=== PATIENT | male | born 1950 | race Caucasian/White ===

== ENCOUNTER 2021-10-15 10:46 | Day surgery (SDC) | payer MEDICARE, BC, SELFPAY ==
[2021-10-15] VITALS (22 sets, daily range): BP systolic 100–161; BP diastolic 43–80; PULSE 65–86; RESP 14–18; TEMP 36.2–36.7; O2SAT 91–96; BMI 29.3
[2021-10-15] MEDS: ACETAMINOPHEN 500 MG TABLET 1000 MG PO ×2 (11:12→19:33)
[2021-10-15] MEDS: CELECOXIB 200 MG CAPSULE PO (11:12)
[2021-10-15] MEDS: OXYCODONE (CR) 10 MG TAB.ER.12H PO (11:12)
[2021-10-15] MEDS: LACTATED RINGERS 1000 ML 1,000 ML 100 ML IV (11:27)
[2021-10-15] MEDS: SODIUM CHLORIDE 0.9 % (FLUSH) 10 ML SYRINGE IVF (11:27)
--- NOTE | 2021-10-15 13:06 | SUR.PREOP ---
TIME?OUT:?1305 PT/RN/ALVARO novoa?VERIFICATION?OF?SURGICAL?SITE right shoulder,?PROCEDURE right shoulder nerve block,?AND?CONSENT OBTAINED?PRIOR?TO?INVASIVE?PROCEDURE.
[2021-10-15] MEDS: fentaNYL 100 MCG/2 ML inj IVP (13:11)
[2021-10-15] MEDS: MIDAZOLAM HCL 1 MG/ML inj IVP (13:11)
--- NOTE | 2021-10-15 13:13 | P.NB_ITS ---
Nerve Block Nerve Block Time Seen by Provider: 13:12 Date Seen: 10/15/21 Type of block requested by surgeon for post-operative analgesia: interscalene Side: right Time out performed: Yes Verification of patient name: Yes Verification of date of : Yes Site marking: site marked Name of person performing procedure: Ja Assistants, if any: Arlenembrogkike Continuous monitoring Was continuous monitoring of O2 sat, B/P, diagnostic technician, recorded every 15 minutes?: Yes Procedure Checklist: sterile prep, needles and gloves Ultrasound guided. Images saved: Yes Medications given in 5ml increments after negative aspiration: Ropivicaine %: 0.5 mL: 20 Needle gauge: 22 Decadron (mg): 10 Precedex (mcg): 25 Patient tolerated procedure well: Yes
[2021-10-15] MEDS: CEFAZOLIN 2 GM INJ IVP (13:30)
--- NOTE | 2021-10-15 14:26 | PC.NURSE ---
3000cc NACL USED TO IRRIGATE THE RIGHT SHOULDER PRIOR TO BEGINNING THE CLOSURE.
--- NOTE | 2021-10-15 16:25 | P.ORPRC_ITS ---
Procedure Note Procedure: SURGEON: Gui Astudillo MD BRAKE OPERATOR SHEET METAL: Krupa Hidalgo PA-C, OBED Jo PREOPERATIVE DIAGNOSIS: Right upper extremity end-stage glenohumeral joint osteoarthritis POSTOPERATIVE DIAGNOSIS: Right upper extremity end-stage glenohumeral joint osteoarthritis NAME OF OPERATION: Right upper extremity total shoulder arthroplasty ANESTHESIA: General endotracheal ESTIMATED BLOOD LOSS: 300 mL COMPLICATIONS: None SPECIMENS: None DRAINS: None PREOPERATIVE ANTIBIOTICS: Ancef 2 grams IMPLANTS: 1. Tornier medium 25 degree augmented pegged glenoid component 2. Tornier 5B humeral stem 3. 48 mm x 20 mm low offset humeral head INDICATIONS: The patient is a 71-year-old male with a longstanding history of severe, unrelenting right shoulder pain secondary to end-stage glenohumeral joint osteoarthritis. Despite appropriate nonoperative management, including activity modification, anti-inflammatories, [id number] pain medication, physical therapy, and injections they continue to have pain and disability. Operative intervention was offered. The risks, benefits and expected outcomes were discussed in detail. These included but were not limited to: Infection, bleeding, injury to blood vessel or nerve, venous thromboembolism. All questions were answered to their satisfaction. Use of an resident assistant was necessary throughout the case for patient positioning and safety, soft tissue retraction, and closure. A modifier 22 should be added to this case. Exposure of the glenoid was quite difficult. Also given the amount of retroversion on the glenoid this added to the exposure difficulty and complexity of the case. These factors more than doubled the time typically required to complete the case. PROCEDURE: General anesthesia was administered. The patient was placed in the lazy beach chair position on the operating room table. The right upper extremity was prepped and draped in the usual sterile fashion. A standard deltopectoral incision was made. Subcutaneous dissection was taken with electrocautery to the deltopectoral interval. The cephalic vein was mobilized, lateral branches were cauterized. It was retracted medially, with the pectoralis. We bluntly entered the deltopectoral interval. We freed up the deltoid. The upper 1/3 of the insertion of the pectoralis was divided with cautery. The static retractor was placed. The clavipectoral fascia and CA ligament were divided. The circumflex vessels were controlled with electrocautery. The biceps was dissected out of the bicipital groove, was tagged with a #2 FiberWire suture and divided proximally. Two fiberWire sutures were placed in the subscapularis. The subscap was subperiosteally elevated off of the lesser tuberosity. The humeral head was delivered into the wound. The intramedullary humeral cutting guide was placed. We made the cut at the anatomic neck, in 20? of retroversion. Humeral sounds were used. Broaches were used until rotational stability was achieved. The cut protector was placed. Attention was then turned to the glenoid. Hohmann retractors were placed posteriorly. The labrum and biceps stump were sharply debrided. The origin of the inferior glenohumeral ligaments were subperiosteally released off of the glenoid. Based on our preoperative plan, the glenoid appeared to be a medium. This was confirmed. The blueprint drill guide was placed. The guide pin was placed. The reamer was used to lower the anterior side. The derotation drill guide was placed and the derotation hole was drilled anteriorly. The angled Reamer was used at 15?, then 25?. This nicely made the glenoid concentric. The medium 25 degree Sizer was placed. The peripheral drill guide was placed. The peripheral drill holes were made. The guide was removed and the central drill hole was made, over the guide pin. The guide pin was removed and the trial glenoid component was placed and was an excellent fit. The glenoid was irrigated with normal saline then thoroughly dried. Cement was placed in the superior and inferior drill holes. The medium 25 degree augment, pegged glenoid component was placed and was impacted. This was an excellent fit. Attention then returned to the humerus. The trial humeral head was placed. We reduced the shoulder and took it through a range of motion. It was found to be stable with appropriate soft tissue tension. Trial humeral components were removed. We placed 2 #2 FiberWire sutures through the lesser tuberosity for subsequent subscap repair. The biceps was tenodesed in the groove with sutures placed through drill holes, into the canal. We assembled the humeral component on the back table and impacted it into the canal. This had excellent purchase. The shoulder was reduced and was found to have appropriate soft tissue tension. We did a 3 min dilute Betadine solution soak. We irrigated the wound with 3 L of normal saline via pulse lavage. We repaired the subscapularis to the lesser tuberosity with our previously placed FiberWire sutures. The rotator interval was repaired with a #2 FiberWire suture. The deltopectoral interval was loosely reapproximated with an 0 Vicryl in an interrupted [id number] fashion. Subcutaneous tissues were closed with the 2-0 Vicryl and a running 3-0 Monocryl suture. The skin was sealed with glue. A dry dressing and sling were applied Sponge and needle counts were correct x2. The patient tolerated the procedure well, there were no apparent complications. They were awakened and extubated in the operating room, taken to the postanesthesia care unit in satisfactory condition. PLAN: The patient will be mobilized with physical therapy. The sling will be used for 6 weeks postoperatively. Active range of motion in forward flexion and abduction as tolerates. No external rotation greater than 0? for 6 weeks postoperatively. They will to be discharged to home once medically appropriate.
--- NOTE | 2021-10-15 16:58 | W.ANESCHARGE ---
Anesthesia Charges Start Date/Time Anesthesia Start Date: 10/15/21 Anesthesia Start Time: 13:18 Stop Date/Time Anesthesia Stop Date: 10/15/21 Anesthesia Stop Time: 16:53 Summary Emergency: No Extremes of Age: Over 70-CPT 89150
--- NOTE | 2021-10-15 17:10 | CRLHL7_ITS ---
For Patients: As a result of the Century Cures Act, medical imaging exams and procedure reports are released immediately into your electronic medical record. You may view this report before your referring provider. If you have questions, please contact your health care provider. 2 view portable right shoulder. INDICATION: Right shoulder arthroplasty IMPRESSION: The components are intact humeral prosthesis with postoperative changes at the glenoid. Alignments anatomic. No acute osseous lesion. Postoperative changes small amount of gas in the soft tissues. Dictated by Rosales Nunez MD @ 10/18/2021 10:02:33 PM (Electronically Signed)
[2021-10-15] MEDS: LACTATED RINGERS 1000 ML 1,000 ML 75 ML IV (18:00)
[2021-10-15] MEDS: HYDROmorphone 0.5 mg/0.5 ml inj IVP ×3 (19:00→23:10)
[2021-10-15] MEDS: CEFAZOLIN 2 GM in 0.9 % SODIUM CHLORIDE Mini-bag 100 ML IVPB (19:32)
--- NOTE | 2021-10-15 19:45 | PC.NURSE ---
Pt. arrived to room 257 from PACU just after 1800. Awake, alert, denied pain, nausea or other issue. Able to wiggle fingers, some numbness noted in right hand. Cryocuff to right shoulder, dressings x2 to anterior shoulder C/D/I. TEDS/SCDs in place. Fiance at bedside. Frequent vitals thus far unremarkable. Tolerating ice chips/drinks.
--- NOTE | 2021-10-15 20:06 | P.IMCN_ITS ---
Date of Consult Primary Care Provider: Felipe Flores MD Consult Narrative Narrative: HOSPITALIST CONSULT Hospital Day # 1 Postop day 0 right total shoulder arthroplasty The hospital medicine team was asked by Orthopedic team to manage the patient's hypertension Preop completed on 10/[address] Shell is reviewed in detail. PAST MEDICAL HISTORY: Hypertension Erectile dysfunction Hyperlipidemia Acoustic neuroma, left-sided hearing loss History of prostate cancer MEDICATIONS: Reviewed ALLERGIES: No known drug allergies SURGICAL HISTORY: Status post prostatectomy, robotic History of lung biopsy Status post excision acoustic neuroma FAMILY HISTORY: Reviewed in EMR HABITS: Previous smoker SOCIAL HISTORY: See H&P REVIEW OF SYSTEMS: 12-point ROS completed with patient and negative unless otherwise stated in HPI or below. PHYSICAL EXAM: CODE STATUS: CONSTITUTIONAL: Conversive, good historian. A/O. Knows setting and context. VITAL SIGNS: see record. HEENT: Normocephalic, atraumatic. PERRL, EOMI, conjunctivae pink, no scleral icterus. Ears and nose externally normal. Pharynx normal. NECK: No JVD. No carotid bruit, no thyromegaly, no adenopathy. CHEST: Clear to auscultation bilaterally HEART: No harsh murmurs. S1/S2. ABDOMEN: Flat, soft, nontender. Normal bowel sounds. Moderately obese. EXTREMITIES: No edema. MUSCULOSKELETAL: Right shoulder is clean dry and intact with surgical dressing overlying. NEURO: Cranial nerves intact. Normal affect. No gross deficits. Speech intelligible. SKIN: No rashes, petechiae, concerning changes PSYCHIATRIC: Euthymic. INVESTIGATIONS: EMR Reviewed DISPOSITION: DVT: Ambulation GI: PO intake [facility] Medical History (Updated 10/14/21 @ 09:41 by Jina Pro RN) Acoustic neuroma Allergic rhinitis Gastroesophageal reflux disease History of malignant neoplasm of prostate Hyperlipidemia Hypertension Lung nodule (2008) Polyp of colon (2010) Surgical History (Updated 10/15/21 @ 20:36 by Mireya Harkins MD) History of lung biopsy (2008) Status post excision of acoustic neuroma Status post prostatectomy (2011) Status post reverse total arthroplasty of right shoulder Social History Smoking Status: Never smoker How often do you have a drink containing alcohol: 2-3 times a week How many standard drinks containing alcohol do you have on a typical day: 3 or 4 How often do you have six or more drinks on one occasion: Less than monthly AUDIT-C Alcohol total score: 5 Non-prescribed substance use: denies use Caffeine: Yes service: No Meds Home Medications and Allergies Home Medications Medication Instructions Recorded Confirmed Type aspirin 81 mg tablet,delayed 81 mg PO DAILY 10/08/21 10/15/21 History release atorvastatin 10 mg tablet 10 mg PO HS 10/08/21 10/15/21 History ibuprofen 200 mg tablet 400 mg PO Q6H PRN 10/08/21 10/08/21 History lisinopril 10 1 tab PO DAILY 10/08/21 10/15/21 History mg-hydrochlorothiazide 12.5 mg tablet tadalafil 5 mg tablet 5 mg PO PRN PRN 10/08/21 10/15/21 History Allergies Allergy/AdvReac Type Severity Reaction Status Date / Time No Known Allergies Allergy Unverified 10/04/21 16:14 Exam Const: Vital Signs, click to edit/add: Vital Signs - 24 hr 10/15/21 11:16 10/15/21 13:10 10/15/21 16:49 Temperature 97.6 F 97.2 F L Pulse Rate 70 65 70 Pulse Rate [Right Pulse Oximeter] Respiratory Rate 16 14 16 Blood Pressure 129/80 121/78 117/64 Blood Pressure [Le ft Arm] Pulse Oximetry 96 93 91 10/15/21 17:00 10/15/21 17:01 10/15/21 17:05 Temperature Pulse Rate 69 71 75 Pulse Rate [Right Pulse Oximeter] Respiratory Rate 16 16 16 Blood Pressure 107/64 105/60 100/61 Blood Pressure [Le ft Arm] Pulse Oximetry 96 96 94 10/15/21 17:11 10/15/21 17:15 10/15/21 17:21 Temperature Pulse Rate 73 73 75 Pulse Rate [Right Pulse Oximeter] Respiratory Rate 16 14 14 Blood Pressure 102/61 106/58 L 100/64 Blood Pressure [Le ft Arm] Pulse Oximetry 94 95 93 10/15/21 17:25 10/15/21 17:30 10/15/21 18:12 Temperature 98.1 F Pulse Rate 77 78 Pulse Rate [Right Pulse Oximeter] 79 Respiratory Rate 16 16 14 Blood Pressure 105/66 108/66 Blood Pressure [Le ft Arm] 119/71 Pulse Oximetry 93 92 94 10/15/21 18:17 10/15/21 18:30 10/15/21 18:45 Temperature 97.7 F Pulse Rate 79 Pulse Rate [Right Pulse Oximeter] 79 78 73 Respiratory Rate 14 14 Blood Pressure Blood Pressure [Le ft Arm] 104/69 110/69 112/74 Pulse Oximetry 95 95 96 10/15/21 19:00 10/15/21 19:33 Temperature 97.7 F 97.7 F Pulse Rate Pulse Rate [Right Pulse Oximeter] 73 Respiratory Rate 14 Blood Pressure Blood Pressure [Le ft Arm] 123/72 Pulse Oximetry 96 Assessment and Plan Assessment and plan (1) Status post reverse total arthroplasty of right shoulder: Status: Acute Assessment and Plan: I expect a benign postoperative course. Hospital medicine team is happy to varsha wong along. His hypertension appears well managed. There are no other acute problems that should affect his overnight stay. VT prophylaxis is simple ambulation. (2) Hypertension: Status: Acute Assessment and Plan: We will continue his lisinopril/hydrochlorothiazide in the morning. Blood pressure today looks good 112/75.
[2021-10-15] MEDS: SENNOSIDES 1 TAB TABLET 2 TAB PO (21:43)
[2021-10-15] MEDS: ATORVASTATIN 10 MG TABLET PO (21:44)
[2021-10-16] MEDS: HYDROmorphone 0.5 mg/0.5 ml inj IVP ×5 (01:15→06:35)
[2021-10-16 03:00] VITALS: BP 109/61; PULSE 90; RESP 18; TEMP 36.8; O2SAT 93
[2021-10-16] MEDS: CEFAZOLIN 2 GM in 0.9 % SODIUM CHLORIDE Mini-bag 100 ML IVPB ×2 (03:21→11:26)
--- NOTE | 2021-10-16 05:34 | PC.NURSE ---
Shift note: Surgical dressing is C/D/I, pt still does not feel any pain to his sx site, sensation in fingers present mostly tingling, extremity is warm, radial pulse strong. Pt tolerates PO food and fluids with no c/o nausea, is voiding, ambulates independently in the room.
[2021-10-16] MEDS: lisinopriL 10 MG TABLET PO (09:16)
[2021-10-16] MEDS: ACETAMINOPHEN 500 MG TABLET 1000 MG PO (09:16)
[2021-10-16] MEDS: SENNOSIDES 1 TAB TABLET 2 TAB PO (09:16)
[2021-10-16] MEDS: hydroCHLOROthiazide 12.5 MG CAPSULE PO (09:16)
--- NOTE | 2021-10-16 09:16 | P.DS_ITS ---
DS: Providers Provider Time Seen by Provider: 09:15 Date Seen: 10/16/21 Primary care physician: Felipe Flores MD Consults: 10/15/21 16:21 Consult to Occupational Therapy [CONS] Routine Comment: Reason(s) for OT Consult:: Evaluate and Treat Any Restrictions?:: See Comment Consult to Physical Therapy [CONS] Routine Comment: Reason(s) for PT Consult:: Evaluate Ambulation Any Restrictions?:: See Comment Comment: No ER > 0 degrees Consult to Self Pay Specialist [CONS] Routine Comment: Reason for Consult:: Discharge Planning Needs Attending Physician on discharge: Gui Astudillo MD DS: Diagnosis Discharge Diagnosis (1) Status post reverse total arthroplasty of right shoulder: Status: Acute DS: Summary Hospital Course Hospital Course: 71-year-old male underwent right total shoulder arthroplasty yesterday, the day of admission. There were no operative complications. Patient is doing well today. His block is still effective. He has had no other concerns. Time Spent with Patient Time attestation: Total time spent providing and/or coordinating discharge services: Time spent: Less than 30 minutes Exam Narrative: Exam Narrative: He is alert and appears in no distress. Breathing is unlabored. He has diminished motion and sensation in his right hand. Good peripheral pulses and good capillary refill. Const: Vital Signs, click to edit/add: Vital Signs - 24 hr 10/15/21 11:16 10/15/21 13:10 10/15/21 16:49 Temperature 97.6 F 97.2 F L Pulse Rate 70 65 70 Pulse Rate [Right Pulse Oximeter] Respiratory Rate 16 14 16 Blood Pressure 129/80 121/78 117/64 Blood Pressure [Le ft Arm] Pulse Oximetry 96 93 91 10/15/21 17:00 10/15/21 17:01 10/15/21 17:05 Temperature Pulse Rate 69 71 75 Pulse Rate [Right Pulse Oximeter] Respiratory Rate 16 16 16 Blood Pressure 107/64 105/60 100/61 Blood Pressure [Le ft Arm] Pulse Oximetry 96 96 94 10/15/21 17:11 10/15/21 17:15 10/15/21 17:21 Temperature Pulse Rate 73 73 75 Pulse Rate [Right Pulse Oximeter] Respiratory Rate 16 14 14 Blood Pressure 102/61 106/58 L 100/64 Blood Pressure [Le ft Arm] Pulse Oximetry 94 95 93 10/15/21 17:25 10/15/21 17:30 10/15/21 18:12 Temperature 98.1 F Pulse Rate 77 78 Pulse Rate [Right Pulse Oximeter] 79 Respiratory Rate 16 16 14 Blood Pressure 105/66 108/66 Blood Pressure [Le ft Arm] 119/71 Pulse Oximetry 93 92 94 10/15/21 18:17 10/15/21 18:30 10/15/21 18:45 Temperature 97.7 F Pulse Rate 79 Pulse Rate [Right Pulse Oximeter] 79 78 73 Respiratory Rate 14 14 Blood Pressure Blood Pressure [Le ft Arm] 104/69 110/69 112/74 Pulse Oximetry 95 95 96 10/15/21 19:00 10/15/21 19:30 10/15/21 19:33 Temperature 97.7 F 97.7 F 97.7 F Pulse Rate Pulse Rate [Right Pulse Oximeter] 73 83 Respiratory Rate 14 18 Blood Pressure Blood Pressure [Le ft Arm] 123/72 104/70 Pulse Oximetry 96 93 10/15/21 20:00 10/15/21 21:00 10/15/21 22:00 Temperature 97.7 F 97.7 F 98 F Pulse Rate Pulse Rate [Right Pulse Oximeter] 84 80 Respiratory Rate 16 16 18 Blood Pressure Blood Pressure [Le ft Arm] 112/75 121/76 161/43 H Pulse Oximetry 94 95 94 10/15/21 23:00 10/16/21 03:00 Temperature 98 F 98.2 F Pulse Rate Pulse Rate [Right Pulse Oximeter] 86 90 Respiratory Rate 18 Blood Pressure Blood Pressure [Le ft Arm] 125/69 109/61 Pulse Oximetry 93 Documenting provider has reviewed patient's vital signs: yes Discharge Plan Discharge Disposition: Home, Self-Care Discharging Surgeon: Gui Astudillo Follow-Up Appointment: Per orthopedic surgery Prescriptions: New sennosides [Senna Lax] 8.6 mg Tablet 2 tab PO BID PRNQty: 100 0RF acetaminophen 500 mg Tablet 500 - 1,000 mg PO Q6H PRN (Reason: prn) Qty: 100 0RF oxycodone 5 mg Tablet 2.5 - 5 mg PO Q4-6H PRN (Reason: Pain) Qty: 42 0RF Continued atorvastatin 10 mg tablet 10 mg PO HS 0RF lisinopril-hydrochlorothiazide 10-12.5 mg tablet 1 tab PO DAILY 0RF tadalafil 5 mg tablet 5 mg PO PRN PRN0RF Rx Instructions: TAKE ONE TAB 30 MIN TO 36 HRS PRIOR TO INTERCOURSE aspirin 81 mg tablet,delayed release (DR/EC) 81 mg PO DAILY 0RF ibuprofen 200 mg tablet 400 mg PO Q6H PRN0RF Activity Level: Wear Brace Activity Detail: Wear sling for 6 weeks. Active range of motion of right elbow, wrist, fingers daily. Forward flexion and abduction Right shoulder as tolerates. No external rotation of the shoulder greater than 0?. Ice right shoulder without restriction. Leave dressing on. Dressing is waterproof. May shower. Surgical glue covers the wound. Notify Orthopedics with any questions or concerns. Discharge Diet: Heart Healthy (2 gm sodium, low fat) Additional Instructions: Resume normal blood pressure medicines. Other medications resumed as well. Pain medicine management discussed. Also discussed laxatives for constipation as long as he is needing pain medications. Forms: [facility] Info Instructions Follow-up: Felipe Flores MD [Primary Care Provider] - Discharge Orders: Discharge Order (Routine); Ordered 10/16/21 Ordered By: Steve Holden
--- NOTE | 2021-10-16 09:33 | P.ORPN_ITS ---
Subjective Subjective Time Seen by Provider: 08:30 Date Seen: 10/16/21 Principal diagnosis: Status post right shoulder replacement Interval history: Pt is comfortable this morning. He did not sleep well. He has some wrist movement this morning, right. Ortho Exam Narrative Exam Narrative: Examination of the right shoulder shows the dressing is intact. Mild soft tissue edema about the right shoulder. Wrist flexion and extension is slight. He is also able to extend and flex his fingers but is not able to make a full composite fist. Decreased sensation right upper extremity. Right upper extremity is in a sling. Const Vital Signs, click to edit/add: Vital Signs - 24 hr 10/15/21 11:16 10/15/21 13:10 10/15/21 16:49 Temperature 97.6 F 97.2 F L Pulse Rate 70 65 70 Pulse Rate [Right Pulse Oximeter] Respiratory Rate 16 14 16 Blood Pressure 129/80 121/78 117/64 Blood Pressure [Left Arm] Pulse Oximetry 96 93 91 10/15/21 17:00 10/15/21 17:01 10/15/21 17:05 Temperature Pulse Rate 69 71 75 Pulse Rate [Right Pulse Oximeter] Respiratory Rate 16 16 16 Blood Pressure 107/64 105/60 100/61 Blood Pressure [Left Arm] Pulse Oximetry 96 96 94 10/15/21 17:11 10/15/21 17:15 10/15/21 17:21 Temperature Pulse Rate 73 73 75 Pulse Rate [Right Pulse Oximeter] Respiratory Rate 16 14 14 Blood Pressure 102/61 106/58 L 100/64 Blood Pressure [Left Arm] Pulse Oximetry 94 95 93 10/15/21 17:25 10/15/21 17:30 10/15/21 18:12 Temperature 98.1 F Pulse Rate 77 78 Pulse Rate [Right Pulse Oximeter] 79 Respiratory Rate 16 16 14 Blood Pressure 105/66 108/66 Blood Pressure [Left Arm] 119/71 Pulse Oximetry 93 92 94 10/15/21 18:17 10/15/21 18:30 10/15/21 18:45 Temperature 97.7 F Pulse Rate 79 Pulse Rate [Right Pulse Oximeter] 79 78 73 Respiratory Rate 14 14 Blood Pressure Blood Pressure [Left Arm] 104/69 110/69 112/74 Pulse Oximetry 95 95 96 10/15/21 19:00 10/15/21 19:30 10/15/21 19:33 Temperature 97.7 F 97.7 F 97.7 F Pulse Rate Pulse Rate [Right Pulse Oximeter] 73 83 Respiratory Rate 14 18 Blood Pressure Blood Pressure [Left Arm] 123/72 104/70 Pulse Oximetry 96 93 10/15/21 20:00 10/15/21 21:00 10/15/21 22:00 Temperature 97.7 F 97.7 F 98 F Pulse Rate Pulse Rate [Right Pulse Oximeter] 84 80 Respiratory Rate 16 16 18 Blood Pressure Blood Pressure [Left Arm] 112/75 121/76 161/43 H Pulse Oximetry 94 95 94 10/15/21 23:00 10/16/21 03:00 Temperature 98 F 98.2 F Pulse Rate Pulse Rate [Right Pulse Oximeter] 86 90 Respiratory Rate 18 Blood Pressure Blood Pressure [Left Arm] 125/69 109/61 Pulse Oximetry 93 Documenting provider has reviewed patient's vital signs: yes Common normals: no apparent distress, average body habitus, oriented x3, no limitations, healthy appearing, alert and well nourished General appearance: cooperative, comfortable, well kempt and well developed Orientation/consciousness: Yes awake HENMT Common normals: Yes hearing grossly normal bilaterally Resp Common normals: Yes normal respiratory effort, Yes no retractions and Yes no use of accessory muscles Cardio Peripheral pulses: radial pulses present and ulnar pulses present Extremity Common normals: no calf tenderness Neuro Common normals: oriented x3 Sensorium/orientation: awake and alert Psych Common normals: thought process normal and speech normal Appearance: well kempt Speech: normal speech Mood and affect: euthymic mood Thought process: normal thought process Thought content: normal thought content Attention/concentration: attention grossly intact Memory/cognition: memory grossly intact Insight: insight good Judgement: judgment good Skin Common normals: Yes no rashes or lesions noted and Yes skin turgor normal General skin exam: Yes no rashes or lesions noted, Yes turgor normal and Yes warmth appropriate Assessment and Plan Assessment and plan (1) Status post replacement of right shoulder joint: Problem details: Plan for discharge is today to home if they meet discharge criteria. Patient will wear the sling for 6 weeks post surgery. She can take it off for comfort and for exercises. Activity: no external rotation of the left shoulder past 0? x 6 weeks. Forward flexion and abduction of the left shoulder is allowed as tolerated. They will work on range of motion of the elbow, wrist, fingers once the block has wore off on the operative extremity. Patient will begin occupational therapy for the operative shoulder next week. For discharge, oxycodone and Tylenol for pain. The patient is tolerating these well. Do not drive while on narcotic pain medication. Drive only when safe to do so, when they have normal use/function of the upper extremity. Patient will minimize and discontinue the narcotic as soon as possible. Remove dressing in 1 week. Dressing is waterproof. May shower. Surgical glue covers the wound. Do not sc rub the wound. Expect swelling and bruising about the shoulder and upper extremity. Use of ice/active ice is without restriction. Patient will notify Orthopedics with any questions or concerns. Return to Orthopedic clinic next week for a wound check Return to clinic in [address] Astudillo. Status: Acute
[2021-10-16] MEDS: ASPIRIN 81 MG TABLET EC PO (10:43)
[2021-10-16] MEDS: OXYCODONE 5 MG TABLET PO (10:43)
[2021-10-16 11:31] VITALS: BP 120/65; PULSE 92; RESP 16; TEMP 37.3; O2SAT 94
--- NOTE | 2021-10-16 15:35 | PC.NURSE ---
Pt. up indep. in room/halls with therapy and on own this morning. Voiding adequately, pain controlled w/PRN med x1, tolerating regular diet. Worked w/OT & PT this morning. Vitally stable, 3rd dose Zocyn received and saline lock removed. D/C paperwork signed and returned to chart after discussing D/C information, answering questions and reviewing new medications. Pt. requested Kelsie, OT return to also help educate his significant other, which was accomplished. Pt. left w/belongings and significant other @ 1300.
== END 2021-10-16 13:00 | disposition home or self-care (01) ==
LOC: MEDSURG 17:43 → SS 19:11 → MEDSURG 19:12
PROVIDERS: PCP Internal Medicine; Visit Provider Orthopaedic Surgery
PROC: 0RRJ0JZ Replacement of Right Shoulder Joint with Synthetic Substitute, Open Approach (ICD-10-PCS; CPT 23472; principal; 2021-10-15 13:00)
DX: M19.011 Primary osteoarthritis, right shoulder (principal); I10 Essential (primary) hypertension; Z85.46 Personal history of malignant neoplasm of prostate; E78.5 Hyperlipidemia, unspecified; K21.9 Gastro-esophageal reflux disease without esophagitis
CPT/HCPCS: 23472; 1638; 64415; 73030; 76942; 97110; 97161; 97165; 97535; 99100; A9270; C1776; J0330; J0690; J1100; J1170; J2250; J2370; J2405; J2704; J2795; J3010; J7120; L3670

== ENCOUNTER 2022-01-11 08:15 | Outpatient (RCR) | payer MEDICARE, BC, SELFPAY ==
--- NOTE | 2021-10-28 13:54 | PT.OPE ---
PT [place] Outpatient Eval PT [facility] Outpatient Eval Start: 10/28/21 13:20 Freq: Status: Active Protocol: Document 10/28/21 13:21 CITLALY (Rec: 10/28/21 13:51 CITLALY Desktop) E-Signed By Roberto Peña, PT, ATC Physical Therapy Outpatient Evaluation Insurance Information Insurance Name Medicare B Medical Diagnosis s/p R shld TSA, 10/15/21 Treating Diagnosis R shld pain R shld stiffness R lower arm swelling and parethesia Referring MD Astudillo Subjective Subjective Pain at rest: 0-1/10 Pain with movement: 8/10 Wearing splint throughout the day but not at night. Date of Last Physician Visit 10/25/21 Date of Surgery (If applicable) 10/15/21 Current Work Status Retired Precautions Treatment Precautions/Contraindications R UE DVT occurrence since surgery. Pain, lower arm swelling and paresthesia. Has been taking medication-Xarelto x 30 days. Therapy Limitations/Systems Review Not Limited Objective Range of Motion PROM L shld WNL's all patterns R FLEX 70 degrees, ABD 40 Strength Finished Goods Planner strength L 92#, R 8# Pinch strength L 18#, R 5# Swelling Circumference 2 prox distal radius: R 7 1/ 2 6 prox distal radius: R 10 1 /2 Palpation Tenderness over anterior R shld incision, into pectoralis and anterior chest. Posture Stands with elevated R shoulder, elbow flexed and arm held close to his body. Bruising present on inner aspect of humerus/upper arm. Assessment Assessment/Impression Yanick is a reserved and quiet 71 year old male referred to PT following his R shoulder TSA on 10/15/21. DVT complications in the upper arm has him on a prescription medication and constant alert for symptoms-lower arm swelling, pain and paresthesia . These have reduced some since beginning Xarelto a few days ago. R shoulder restrictions include no ER past neutral x 6 weeks and sling usage. He indicated that he was not wearing the sling as much during the day but would use it more consistently following todays encouragement. Pain is being managed using Tyonol and icing during the day and taking his Oxycodone before bed. Although he resides in [place], he is currently living in [place] with his friend who provides assistance as needed. Fernando's arm appears to be doing better since taking the Xarelto yet he is very conscious to monitor symptoms on his own. He initially showed excessive guarding with passive range today yet eventually relaxed some as the treatment progressed. The shoulder does not feel excessively warm or sensitive to being held. Primary Functional Limitations ADL's Swimming Biking Plan of Care Rehabilitation Potential Good Physical Therapy Goals ST.Reduce pain with ROM to 4/10 or less. 2.Able to sleep x 4 hr.s without interruption from pain /stiffness. 3.To walk x 1 mile while wearing sling for personal fitness. 4.PROM x 6 weeks: FLEX 120, ABD 100 LT. Ability for self care- washing face, head and opposite shoulder 12 week.s 2.Able to sleep through the night without R shld pain interference. 20 weeks 3.Return to swimming 24 weeks Coordination/Communication With Referral Source Treatment Plan/Direct Interventions Joint Mobilization,Manual Therapy,Therapeutic Exercises Frequency/Duration 2x/week x 6 weeks 1x/week x 6 weeks 1-2x/month weeks 12-24 Patient Will Be Discharged From Therapy Skills Plateau,Independent w/ HEP,Independently Progressing Evaluation Billing Untimed Code Treatment Minutes 40 Complexity Low Certification Information Initial Certification Date 10/28/21 Ending Certification Date 01/27/22
--- NOTE | 2021-12-08 16:03 | OT.OPLE ---
OT Outpatient Lymphedema Eval OT Outpatient Lymphedema Eval Start: 12/08/21 15:10 Freq: Status: Active Protocol: Document 12/08/21 15:11 AKBAR (Rec: 12/08/21 15:53 LCN [id number]) E-signed By Charlene Wolf, OTR/L, CLT OT Outpatient Evaluation Details Type Type Eval Complexity Low OT OP Lymphedema Evaluation Insurance Information Insurance Information Medicare B Insurance Information Comments BC/BS secondary Current Condition/Medical Diagnosis Referring Provider Baudilio Treatment Diagnosis R UE edema, hand numbness s/p DVT, post TSA Date Of Onset 10/15/21 Medical Contraindications CA,Metal Implants,Arthritis Current Work Status Current Work Status Retired Subjective Subjective 6 weeks post right TSA. He reports persistent swelling in his hand, stiffness with flexion and numbness and tingling in his thumb, index middle and half his ring finger. He continues physical therapy for his shoulder. Surgical History Surgical History lung biopsy 2008. Excision of acoustic neuroma , s/p prostatectomy. R total shoulder arthroplasty 10/15/21. Medications Medications Xarelto x 3 months, atorvastatin. Family History Family History of Lymphedema No Living Situation Current Living Situation Private Home/Apartment (Alone) Current Living Situation Comments Lives with his girlfiend in [place] [employer] [place] and [place]/own home. Patient Difficulties Patient Difficulties Comments sensory changes in R hand, difficulty managing pills, buttons, texting with thumb. Fullness, heavy feeling in R arm Exercise History Does Patient Exercise Regularly Yes Pain Pain No Pain Comments stiffness every morning in am, hand and shoulder. Loss of Function/Strength/Mobility Loss Of Function/Strength/Mobility Yes Loss Of Function/Strength/Mobility Optical Manager is 55# R and 105# L. Comments Pinch is 15 # R and 26# L 3 pt pinch is 10# R and 20# L, no pain. Compression History Does Patient Currently Wear Compression Yes During Daytime Compression During Daytime Comments Just started a compression glove size lg full finger to elbow height9 self purchased via [employer], appropriate fit; could benefit from 3/4 finger glove with tetragrip sleeve wrist to axilla for more sensory input/dexterity.) Current Swelling (Location/Pitting/Texture) Pitting Scale: 0 = No pitting 1+ Tissue returns to normal almost immediately 2+ Tissue returns after 15-30 seconds 3+ Tissue returns after 1-1/2 minutes 4+ Tissue returns after 2-3 minutes N/A Tissue no longer pits due to induration Tissue texture: Soft or indurated Triggering Event & Start Date of blood clot symptoms emerged as Swelling/Lymphedema neck pain, sweliing of R UE axilla to finger tips. Type of Swelling Secondary,Post Surgery/ Traumatic Edema Staging Staging Stage 1 Positive Stemmer's Sign No Skin Changes Skin Changes Fibrosis,Limited Skin Mobility Skin Changes Comments skin tissue texture tight at R axilla; distended w edema pocketing at medial elbow, dorsal hand, soft, mobile edema with decreased visibility of vein structures. Brisk capillary refill. Light brown in color/darker than L UE. Circumferential Measurements Upper Extremity Left Upper Extremity Wrist 21.2 40cm 32.8 Right Upper Extremity Wrist 17.6 40cm 31.0 Assessment Assessment R UE edema from distal wrist crease to mid humerus/ 40 cm line is 17.6 19.3 25.8 27.2 27 .3 31 ( 2002 mL girth volume R) L UE edema from distal wrist crease to mid humerus/ 40 cm line is 17.7 20.5 27.8 26.5 28 .3 32.8 (2147 mL girth volume L) Pt has visble decrease in muscle mass post operatively on R UE. Measurable edema change most prevalent at web space 21.5 cm R and 21.2 cm L and 27.2 cm R medial elbow and 26.5 cm in L UE. [employer] Chrissy fiber sensory testing WNL for 6.65, , 4.56 and 4.31 fibers. Light tactile loss at R thumb, missing 3.61 fiber and finger tip mild loss of lightest tactile at R TH and IF tip. Has light 'buzzing' fuzzy sensation for TH/IF/MF at rest . , radiates to medial forearm. Impacts managing pills and fasteners, dropping items. Fernando Horvath is an active 71 y/o male who has increased edema and median nerve distribution numbness in R UE after suffered DVT inat R subclavian areas after his 10/15 R total shoulder arthroplasty. With this, pt more likely to have impaired integrity of skin & lymphedema lead to increased risk infection & skin breakdown.?Pt c/o decreased mobility of R UE/hand d/t bulk of swelling, heaviness in UE. R digit tips are hard to feel and he is frequently dropping items. Pt would benefit from skilled OT to support progress in these areas. Impairments Impairments Difficulties With ADLs,Limb Heaviness Impairments Comments med mgmt and fasteners, dropping items. Problem List Problem List Limited Knowledge of Lymphedema Treatment/Condition /Precautions,Limited Knowledge of Skin Care & Infection Precautions,Does Not Have a HEP,Does Not Have Appropriate Compression Garments For LT Management,Presents With Impaired Mobility/ROM Problem List Comments UE weakness, Sensory changes Patient Goals Patient Goals reduce swelling and improve sensation in R hand Short Term Goals 1) LE Volume-- Pt to have reduction of limb volume of 150 ml R UE for reduced risk of DVT, cellulitis, progression of tissue fibrosis, to increase dexterity in R Hand during med mgmt and managing fasteners of clothing 2)Graduated Compression Bandaging-- Pt to tolerate glove/tergrip and /or GCB ( short stretch bandaging with foam layer for 23/24 hours during duration of treatment to reduce tissue fibrosis and prevent re-acccumulation of extracellular fluid. 3)HEP-- Pt/caregiver to be I with daily self management program to include: prescribed exercises to facilitate the lymph system , and donning/doffing, wearing schedule, and care of GCB/ compression garments as needed to allow successful lymphedema care in home setting. 4) Precautions-- For decreased risk infection/skin breakdown and progressive soft-tissue fibrosis pt will verbalize understanding re self monitoring, and lymphedema precautions, including first aid and travel. Treatment Plan Treatment Plan Evaluation,Edema Control, Manual Therapy,Therapeutic Exercise,Self-Care/Home Management,Caregiver Training, Education Expected Frequency 1-2x Week Expected Duration 4-6 Weeks Certification Certification I Certify That: Therapy Services Provided, Therapy Plan Established, Therapy Plan Reviewed
--- NOTE | 2022-01-10 17:02 | OT.OPLDN ---
OT Outpatient Lymphedema Daily Note OT Outpatient Lymphedema Daily Note Start: 12/08/21 15:10 Freq: Status: Active Protocol: Document 01/10/22 16:45 LCN (Rec: 01/10/22 16:58 LCN Desktop) E-signed By Charlene Wolf, OTR/L, CLT OT OP Lymphedema Daily/Progress Note Note Type Note Type Daily,Discharge Note Visit Number 4 Insurance Information Insurance Information Medicare B Insurance Information Comments BC/BS secondary Current Condition/Medical Diagnosis Referring Provider Baudilio Treatment Diagnosis R UE edema, hand numbness s/p DVT, post TSA Date Of Onset 10/15/21 Medical Contraindications CA,Metal Implants,Arthritis Subjective Subjective Making a fist but tight at IF/ MF end ranges ( fullness at distal MCP heads/palm) UE feels heavy when reaching over head, pinches at acromion when reaching cross body. Starting to have 90% improvement parasthesia in IF, TH is 50% and MF/RF/SF are WNL. eval--6 weeks post right TSA. He reports persistent swelling in his hand, stiffness with flexion and numbness and tingling in his thumb, index middle and half his ring finger. He continues physical therapy for his shoulder. Home Program Compliant To Home Program Yes Home Program Specifics R TSA post op PT ex, compression wear (added -- large edema glove, size F tetragrip wrist to axilla ) and self MLD HEP series. Treatment Manual Therapy OTR completes IASTM of distal palmar MCP heads, digit webspaces and PIP shafts of IF /MF/RF ( gritty texture reduces, fist closure easier afterwards). Manual Therapy Minutes (minutes) 24 Self Care . Self Care Activity Minutes (minutes) 0 Therapeutic Exercise . Therapeutic Exercise Minutes (minutes) 0 Assessment As of 01/10/22-- Pt is feeling ready for discharge from OT. Improved sensation to 3.61 and 2.83 fibers for IF/MF/RF/SF, TH tip lacking light touch with 3.61 and 2.83 Clover Chrissy fibers. Dispatcher Service Or Work at eval was 55# R and 105 # L , now improved to 70# R and 110# L. Chung pinch was 15# R and 26# L. Now 17# R and 25# L. \3 point was 10# R and 20# R. Now 16# and 22#. Fist closure to 1.0 cm finger ti pto palmar crease at IF/MF and WNL.5 cm for RF/SF. Opposes thumb to distal MCP head of SF without pain. Clover Chrissy fiber sensory testing WNL for 6.65, , 4.56 and 4.31 fibers. Light tactile loss at R thumb, missing 3.61 fiber and finger tip mild loss of lightest tactile at R TH and IF tip. Has light 'buzzing' fuzzy sensation for TH/IF/MF at rest . , radiates to medial forearm. Impacts managing pills and fasteners, dropping items. Fernando Horvath is an active 71 y/o male who has increased edema and median nerve distribution numbness in R UE after suffered DVT inat R subclavian areas after his 10/15 R total shoulder arthroplasty. With this, pt more likely to have impaired integrity of skin & lymphedema lead to increased risk infection & skin breakdown.?Pt c/o decreased mobility of R UE/hand d/t bulk of swelling, heaviness in UE. R digit tips are hard to feel and he is frequently dropping items. Pt would benefit from skilled OT to support progress in these areas. Impairments Difficulties With ADLs,Limb Heaviness Impairments Comments med mgmt and fasteners, dropping items. Problem List Limited Knowledge of Lymphedema Treatment/Condition /Precautions,Limited Knowledge of Skin Care & Infection Precautions,Does Not Have a HEP,Does Not Have Appropriate Compression Garments For LT Management,Presents With Impaired Mobility/ROM Problem List Comments UE weakness, Sensory changes Patient Goals Patient Goals reduce swelling and improve sensation in R hand Short Term Goals UPDATE OF PROGRESS/OT DISCHARGE-- 01/10/22 1) LE Volume-- Pt to have reduction of limb volume of 150 ml R UE for reduced risk of DVT, cellulitis, progression of tissue fibrosis, to increase dexterity in R Hand during med mgmt and managing fasteners of clothing (GOAL MET, dexterity improved for clothing fasteners and food packaging) 2)Graduated Compression Bandaging-- Pt to tolerate glove/tergrip and /or GCB ( short stretch bandaging with foam layer for 23/24 hours during duration of treatment to reduce tissue fibrosis and prevent re-acccumulation of extracellular fluid. ( COMPRESSION NOW D?C PER IMPROVED FMC, GIRTH LOSS) 3)HEP-- Pt/caregiver to be I with daily self management program to include: prescribed exercises to facilitate the lymph system , and donning/doffing, wearing schedule, and care of GCB/ compression garments as needed to allow successful lymphedema care in home setting. (Patient ONLY CONTINUES WITH HEP FOR EDEMA MASSAGE TECHNIQUES and FMC tasks) 4) Precautions-- For decreased risk infection/skin breakdown and progressive soft-tissue fibrosis pt will verbalize understanding re self monitoring, and lymphedema precautions, including first aid and travel. (GOAL MET) Treatment Plan Treatment Plan Evaluation,Edema Control, Manual Therapy,Therapeutic Exercise,Self-Care/Home Management,Caregiver Training, Education Expected Frequency 1-2x Week Expected Duration 4-6 Weeks Expected Duration Comments HEP-- 12/15/21 gloria Gibson SH FL and H ABD to Hadd glides 5 sec holds at end ranges. Eval-- Self MLD of UE trunk. See x 1-2 more sessions Daily Plan of Care Continue Per POC Treatment Minutes Timed Treatment Minutes 24 Total Timed Treatment Minutes 24 Occupational Therapy Billing Units Billing Units Manual Therapy 2 Self Care/Home Management 0 Certification Certification I Certify That: Therapy Services Provided, Therapy Plan Established, Therapy Plan Reviewed Discharge Note Discharge Note Discharge Summary As of 01/10/22-- Pt is feeling ready for discharge from OT. Improved sensation to 3.61 and 2.83 fibers for IF/MF/RF/SF, TH tip lacking light touch with 3.61 and 2.83 Clover Chrissy fibers. Dispatcher Service Or Work at eval was 55# R and 105 # L , now improved to 70# R and 110# L. Chung pinch was 15# R and 26# L. Now 17# R and 25# L. \3 point was 10# R and 20# R. Now 16# and 22#. Fist closure to 1.0 cm finger ti pto palmar crease at IF/MF and WNL.5 cm for RF/SF. Opposes thumb to distal MCP head of SF without pain. Date of First Visit for Therapy 12/08/21 Date of Last Visit for Therapy 01/10/22 Initial Primary Functional Limitations/ Fernando Horvath is an active 71 [place] y/o male who has increased edema and median nerve distribution numbness in R UE after suffered DVT inat R subclavian areas after his 10/15 R total shoulder arthroplasty. With this, pt more likely to have impaired integrity of skin & lymphedema lead to increased risk infection & skin breakdown.?Pt c/o decreased mobility of R UE/hand d/t bulk of swelling, heaviness in UE. R digit tips are hard to feel and he is frequently dropping items. Pt would benefit from skilled OT to support progress in these areas. Interventions Provided During Treatment Joint Mobilization,Manual Therapy,Therapeutic Exercise, Self Care/Home Management Recommendations/Reason for Discharge Met All Therapy Goals,Progress Cont w/HEP
== END 2022-11-03 23:59 | disposition home or self-care (01) ==
PROVIDERS: PCP Internal Medicine; Visit Provider Orthopaedic Surgery
DX: I89.0 Lymphedema, not elsewhere classified (principal); Z51.89 Encounter for other specified aftercare
CPT/HCPCS: 97016; 97110; 97140; 97161; 97165; 97535

== ENCOUNTER 2022-07-01 08:00 | Outpatient (CLI) | payer MEDICARE, BC, SELFPAY | END 2022-07-01 08:01 | disposition home or self-care (01) | LOC: NFLDREF 07-02 06:05 | PROVIDERS: PCP Internal Medicine; Referring Provider Internal Medicine; Visit Provider Internal Medicine | DX: E78.5 Hyperlipidemia, unspecified (principal); Z85.46 Personal history of malignant neoplasm of prostate | CPT/HCPCS: 80053; 80061; 84153 ==

== ENCOUNTER 2023-07-04 08:59 | Outpatient (CLI) | payer MEDICARE, BC, SELFPAY | END 2023-07-04 09:00 | disposition home or self-care (01) | LOC: NFLDREF 07-05 07:15 | PROVIDERS: PCP Internal Medicine; Referring Provider Internal Medicine; Visit Provider Internal Medicine | DX: Z13.6 Encounter for screening for cardiovascular disorders (principal); Z12.5 Encounter for screening for malignant neoplasm of prostate; Z13.9 Encounter for screening, unspecified | CPT/HCPCS: 80053; 80061; G0103 ==

== ENCOUNTER 2023-07-10 10:39 | Outpatient (CLI) | payer MEDICARE, BC, SELFPAY ==
--- NOTE | 2023-07-10 10:45 | XR_ITS ---
Patient: YANNI KENNEY Facility:?[facility] Patient ID:?[id number] Site Patient ID:?[id number]. Site :?[id number] Study:?XRay-Hip Left 2V-07/10/2023 11:15:19 AM Ordering Physician:JEANNETTE Final Report: INDICATION: Pain. TECHNIQUE: AP pelvis and 2 views of the left hip. FINDINGS: Mild left hip osteoarthritis clinics osteophytes in the femoral head. Joint space preserved. SI joints and pubic symphysis appear normal. Degenerative changes in the lower lumbar spine. Dictated by Everton Aguirre MD @ 07/11/2023 9:17:36 AM Signed by:?Everton Aguirre MD @07/11/2023 9:17:36 AM (Electronic Signature)
--- NOTE | 2023-07-10 11:00 | XR_ITS ---
Patient: YANNI KENNEY Facility:?[facility] Patient ID:?[id number] Site Patient ID:?[id number]. Site :?[id number] Study:?XRay-Hip Right 2V-07/10/2023 11:15:55 AM Ordering Physician:JEANNETTE Final Report: INDICATION: Pain. TECHNIQUE: Two views of the right hip. FINDINGS: Right hip osteoarthritis with small osteophytes of the femoral head. Joint space preserved. Dictated by Everton Aguirre MD @ 07/11/2023 9:18:22 AM Signed by:?Everton Aguirre MD @07/11/2023 9:18:22 AM (Electronic Signature)
== END 2023-07-10 10:40 | disposition home or self-care (01) ==
PROVIDERS: PCP Internal Medicine; Visit Provider Internal Medicine
DX: M25.551 Pain in right hip (principal); M16.0 Bilateral primary osteoarthritis of hip; M25.552 Pain in left hip
CPT/HCPCS: 73502

== ENCOUNTER 2024-01-01 09:49 | Outpatient (CLI) | payer MEDICARE, BC, SELFPAY ==
--- OUTSIDE RECORDS SUMMARY | 2024-01-01 09:52 | XMS_ITS | Clinical Summary ---
Author Organization [facility] [employer] [facility] Address [place], [place] [address] Care Team Providers Care Pyrotechnic Assembler Name Role Phone Carlton Coombs MD Primary Care Provider [phone] Allergies No known active allergies Medications Medication Sig Dispensed Refills Start Date End Date Status ASPIRIN 81 MG TAB, DELAYED RELEASE take 1 tablet (81mg) by oral route once daily 0 08/21/2006 Active lisinopril-hydrochlor othiazide (10-12.5 mg) tablet (PRINZIDE; ZESTORETIC)Indication s:HTN (hypertension) Take 1 tablet by mouth once daily. 90 tablet 06/06/2017 Active atorvastatin (LIPITOR) 10 mg tabletIndications:Oth er hyperlipidemia Take 1 tablet by mouth once daily. 90 tablet 06/06/2017 Active tadalafiL (CIALIS) 10 mg tablet TAKE 1 TABLET BY MOUTH ONCE DAILY NEEDED 30 MINUTES TO 36 HOURS PRIOR TO INTERCOURSE 05/15/2023 Active eszopiclone (LUNESTA) 1 mg tablet 05/20/2023 Active triamcinolone 0.025% topical (ARISTOCORT) 0.025 % cream APPLY SPARINGLY TOPICALLY TO THE AFFECTED AREA TWICE DAILY FOR RASH 05/23/2022 Active Active Problems Problem Noted Date Diagnosed Date Gastroesophageal reflux disease without esophagi tis 03/21/2015 Right facial numbness 03/20/2015 Overview (03/20/2015): This is very intermittent and he has not had any symptoms for over 3 months. Hyperlipidemia 03/20/2015 HTN (hypertension) 03/19/2014 Adenocarcinoma of prostate, stage 1 02/15/2011 Overview (03/19/2014): Hansa 3+3, T1c Robotic Prostatectomy 2011 Colon polyp 01/12/2011 Overview (01/30/2014): Colonoscopy 12/2010 polyp repeat in 3 years Colonoscopy 01/2014 normal repeat in 5 years Sensorineural hearing loss, asymmetrical 010 Pulmonary nodule 12/31/2008 Lung Disease; necrotizing granulomas. bx 07/24 Prediabetes Unspecified hearing loss Overview (02/10/2012): acoustic neuroma, left ear Resolved Problems Problem Noted Date Diagnosed Date Resolved Date Lung disease 10/27/2008 Overview (10/27/2008): necrotizing granulomas, 07/24 Immunizations Name Administration Dates Next Due Influenza, IIV3 (Age >=3 years) 02/16/20 13,01/18/2012,01/11/2011,2005 Influenza, IIV4 02/24/2015,02/26/2014 Pneumococcal conj 13-Valent (Prevnar 13) 05/02/2016 Td (Age >=7 Years) 03/13/2000 Tdap 12/31/2009 Zoster (Zostavax-ZVL, live) 02/10/2012 Family History Medical History Relation Name Comments Blood Disease Brother 4 Baldev leukemia Heart Disease Brother 4 Baldev CO Heart Disease Brother 5 Alistair CO Allergies Daughter 3 Terra Asthma Daughter 3 Terra Thyroid Disease Daughter 3 Terra Cancer Father abdominal Stroke Maternal Grandfather Heart Disease Maternal Grandmother Heart Disease Mother during CA BG at age 65 Hypertension Mother Stroke Mother Psychiatric illness Paternal Grandfather Allergies Son 2 Lindsey Relation Name Status Comments Brother 1 Alive Baldev Brother 2 Alive Gualberto Brother 3 Alive Rao Brother 4 Baldev Brother 5 Alistair Daughter 1 Alive Terra Daughter 2 Alive Randina Daughter 3 Terra Father Maternal Grandfather Maternal Grandmother Mother (Age 65) CABG Paternal Grandfather Sister 1 Alive Bernadette Sister 2 Alive Shani Sister 3 Alive Amber Son 1 Alive Lindsey Son 2 Lindsey Social History Tobacco Use Types Packs/Day Years Used Date Smoking Tobacco: Former Cigarettes 1 21 0 04/17/1974 - 04/17/1995 Smokeless Tobacco: Never Tobacco Cessation:Counseling Given: Yes Alcohol Use Standard Drinks/Week Comments Yes 0 (1 standard drink = 0.6 oz pur e alcohol) occasional Social Connections Answer Date Recorded Frequency of Communication with Friends and Fami ly Not on file 04/17/2021 Financial Resource Strain Answer Date R ecorded Difficulty of Paying Living Expenses Not on file 04/17/2021 Difficulty of Paying Living Expenses Not on file 04/17/2021 Sex and Gender Information Value Date Recorded Sex Assigned at Not on file Gender Identity Not on file Sexual Orientation Not on file Obstetrics History Last Filed Vital Signs Vital Sign Reading Time Taken Comments Blood Pressure 149/80 05/20/2023 9:17 AM [employer] Pulse 81 05/20/2023 9:17 AM [employer] Temperature 36.4 ??C (97.5 ??F) 05/20/2023 9:17 AM CS T Respiratory Rate 16 05/20/2023 9:17 AM [employer] Oxygen Saturation 95% 05/20/2023 9:17 AM [employer] Inhaled Oxygen Concentration - - Weight 88.5 kg (195 lb) 05/20/2023 9:17 AM [employer] Height 170.2 cm (5' 7) 05/20/2023 9:17 AM [employer] Body Mass Index 30.54 05/20/2023 9:17 AM [employer] Plan of Treatment Health Maintenance Due Date Last Done Comments Hepatitis C screening for ag e 18-79 1968 Zoster (shingles) series for age 50+ (2 of 3) 04/06/2012 02/10/2012 AAA screening age 65-74 10/16/2015 Depression screening for age 12+ 05/02/2017 05/02/19 17 Pneumococcal series for age 65+ (2 of 2 - PPSV23 or PCV20) 05/02/2017 05/02/2016 Medicare Wellness for age 65+ 05/03/2017 05/02/2016 Fecal testing non-DNA (FIT,FOBT,iFOBT) for age 45-75 10/12/2017 10/12/2016 Colonoscopy through age 75 01/29/201901/29, 01/28/2014, 01/11/2011 Tetanus booster 01/01/2020 12/31/2009, 03/13/2000 Lipids for age 45-75 04/28/2021 04/28/2016, 03/03/2015, 03/17/2014, Additional history exists COVID-19 vaccine series ( season) 2023 02/08/2023, 01/28/2022, 07/17/2021, Additional history exists Influenza for age 65+ 12/17/2023 02/24/2015 , 02/26/2014, 02/15/2013, Additional history exists BMI (ht and wt on same day) for age 18+ 05/20/2024 05/20/2023, 02/10/2017, 10/05/2016, Additional history exists Tdap Completed 12/31/2009 Procedures Procedure Name Priority Date/Time Associated Diagnosis Comments OCCULT BLOOD IFOBT STOOL Routine 10/12/2016 10:16 AM CDT Encounter for screening for malignant neoplasm of colon Rectal bleeding LIPID PANEL W REFLEX MEASURED LDL Routine 04/28/2016 7:27 AM [employer] Hyperlipidemia, unspecified hyperlipidemia type from Last 3 Months or Most Recently Relevant to Health Maintenance Results * OCCULT BLOOD IFOBT STOOL (10/12/2016 10:16 AM CDT) STOOL BLOOD ,IFOBT Negative Negative 10/12/2016 11:19 AM CDT [facility] Stool STOOL SPECIMEN / Unknown Non-Blood / Unknown 10/12/2016 10:16 AM CDT 10/12/2016 10:16 AM CDT Carlton Coombs MD LABORATORY [facility] [address] [place] [address], * (ABNORMAL) LIPID PANEL W REFLEX MEASURED LDL (04/28/2016 7:27 AM [employer]) CHOLESTEROL,TOTAL 149 100 - 199 mg/dL 04/28/2016 9:29 AM [employer] [facility] TRIGLYCERIDES 126 <150 mg/dL 04/28/2016 9:29 AM [employer] [facility] HDL CHOLESTEROL 34(L) >40 mg/dL 7 9:29 AM [employer] [facility] NON-HDL CHOLESTEROL 115 <145 mg/dl 04/28/2016 9:29 AM [employer] [facility] CHOL/HDL RATIO 4.38 <4.50 04/28/2016 9:29 AM [employer] [facility] LDL CHOLESTEROL 90 <=130 mg/dL 04/28/2016 9:29 AM [employer] [facility] PATIENT STATUS FASTING 04/28/2016 9:29 AM [employer] [facility] Blood BLOOD SPECIMEN / Unknown Venipuncture / Unknown 04/28/2016 7:27 AM [employer] 04/28/2016 7:27 AM [employer] Carlton Coombs MD CHEMISTRY [facility] [address] [place] [address], from Last 3 Months or Most Recently Relevant to Health Maintenance Care Teams Pyrotechnic Assembler Relationship Specialty Start Date End Date Carlton Coombs MD [address] [place] [address] PCP - General Family Practice 06/08/15
--- NOTE | 2024-01-01 11:02 | W.ANESCHARGE ---
Anesthesia Charges Start Date/Time Anesthesia Start Date: 01/01/24 Anesthesia Start Time: 10:18 Stop Date/Time Anesthesia Stop Date: 01/01/24 Anesthesia Stop Time: 10:38
== END 2024-01-01 09:50 | disposition home or self-care (01) ==
LOC: OP CLINIC 09:50
PROVIDERS: PCP Internal Medicine; Visit Provider Internal Medicine
DX: Z12.11 Encounter for screening for malignant neoplasm of colon (principal); K57.30 Diverticulosis of large intestine without perforation or abscess without bleeding; Z86.010 Personal history of colon polyps
CPT/HCPCS: 00812; 45378; J2704

== ENCOUNTER 2024-05-13 13:18 | Outpatient (CLI) | payer MEDICARE, BC, SELFPAY | END 2024-05-13 13:19 | disposition home or self-care (01) | LOC: MRI 13:19 | PROVIDERS: PCP Internal Medicine; Visit Provider Family Medicine | DX: M48.062 Spinal stenosis, lumbar region with neurogenic claudication (principal); M47.896 Other spondylosis, lumbar region; M51.26 Other intervertebral disc displacement, lumbar region; M25.552 Pain in left hip; M16.0 Bilateral primary osteoarthritis of hip; M25.551 Pain in right hip; M79.605 Pain in left leg | CPT/HCPCS: 72148; 73721 ==

== ENCOUNTER 2024-07-02 13:08 | Outpatient (CLI) | payer MEDICARE, BC, SELFPAY | END 2024-07-02 13:09 | disposition home or self-care (01) | LOC: INJ CL 13:08 | PROVIDERS: PCP Internal Medicine; Visit Provider Family Medicine | DX: M54.16 Radiculopathy, lumbar region (principal); M51.369 Other intervertebral disc degeneration, lumbar region without mention of lumbar back pain or lower extremity pain | CPT/HCPCS: 64483; J1100; Q9966 ==

== ENCOUNTER 2024-08-15 10:00 | Outpatient (RCR) | payer MEDICARE, BC, SELFPAY | END 2024-11-21 10:53 | disposition home or self-care (01) | PROVIDERS: PCP Internal Medicine; Visit Provider Family Medicine | DX: M54.50 Low back pain, unspecified (principal); G89.29 Other chronic pain; M48.061 Spinal stenosis, lumbar region without neurogenic claudication; M48.062 Spinal stenosis, lumbar region with neurogenic claudication; Z51.89 Encounter for other specified aftercare | CPT/HCPCS: 97012; 97110; 97140; 97161 ==

== ENCOUNTER 2024-09-06 09:07 | Outpatient (CLI) | payer MEDICARE, BC, SELFPAY | END 2024-09-06 09:08 | disposition home or self-care (01) | LOC: INJ CL 09:08 | PROVIDERS: PCP Internal Medicine; Visit Provider Family Medicine | DX: M54.16 Radiculopathy, lumbar region (principal); M51.369 Other intervertebral disc degeneration, lumbar region without mention of lumbar back pain or lower extremity pain | CPT/HCPCS: 62323; J0702; Q9966 ==

== ENCOUNTER 2024-11-19 08:19 | Outpatient (CLI) | payer MEDICARE, BC, SELFPAY | END 2024-11-19 08:20 | disposition home or self-care (01) | LOC: INJ CL 08:20 | PROVIDERS: PCP Internal Medicine; Visit Provider Family Medicine | DX: M54.16 Radiculopathy, lumbar region (principal); M51.369 Other intervertebral disc degeneration, lumbar region without mention of lumbar back pain or lower extremity pain | CPT/HCPCS: 62323; J0702; Q9966 ==

== ENCOUNTER 2025-03-26 09:44 | Outpatient (CLI) | payer MEDICARE, BC, SELFPAY | END 2025-03-26 09:45 | disposition home or self-care (01) | PROVIDERS: PCP Internal Medicine; Visit Provider Internal Medicine | DX: K55.069 Acute infarction of intestine, part and extent unspecified (principal) | CPT/HCPCS: 81241; 85303; 85306; 85610 ==